=== PATIENT | female | born 1945 | race Caucasian/White ===

== ENCOUNTER 2019-12-10 10:12 | Outpatient (CLI) | payer MEDICARE, SELFPAY | END 2019-12-10 10:13 | disposition home or self-care (01) | LOC: CHSLAB 10:16 | PROVIDERS: PCP Family Medicine; Visit Provider Specialist | DX: C44.329 Squamous cell carcinoma of skin of other parts of face (principal) | CPT/HCPCS: 88305 ==

== ENCOUNTER 2021-04-27 14:37 | Outpatient (CLI) | payer MEDICARE, SELFPAY | END 2021-04-27 14:38 | disposition home or self-care (01) | LOC: CHSOUTPT 14:44 | PROVIDERS: PCP Family Medicine; Visit Provider Specialist | DX: D22.4 Melanocytic nevi of scalp and neck (principal); B07.9 Viral wart, unspecified; L82.1 Other seborrheic keratosis | CPT/HCPCS: 88305 ==

== ENCOUNTER 2021-07-20 13:40 | Outpatient (CLI) | payer MEDICARE, SELFPAY ==
--- NOTE | 2021-07-20 14:26 | ECG_ITS ---
Measurements Intervals [place] Rate: 63 P: 53 NE: 178 QRS: -24 QRSD: 93 T: 8 QT: 401 QTc: 411 Interpretive Statements SINUS RHYTHM BORDERLINE LEFT AXIS DEVIATION [QRS AXIS < -20] MINIMAL VOLTAGE CRITERIA FOR LVH, CONSIDER NORMAL VARIANT [MEETS CRITERIA IN ONE OF: R(aVL), S(V1), R(V5), R(V5/V6)+S(V1)] NONSPECIFIC ST ABNORMALITY ABNORMAL EKG NO PREVIOUS ECG AVAILABLE FOR COMPARISON Electronically Signed On 07-20-2021 15:54:48 RANGE ECOLOGIST by Dontrell Schreiber M.D.
[2021-07-20 14:51] LABS: Basophils Absolute Auto 0.1 K/mm3 (0.0-0.1); Basophils Percent Auto 0.5 % (0.2-1.2); Eosinophils Absolute Auto 0.2 K/mm3 (0-0.3); Eosinophils Percent Auto 1.8 % (0-4.4); Hematocrit 47.9 % (37.0-47.0); Hemoglobin 15.4 g/dL (12.0-15.0); Immature Granulocyte Absolute 0.03 K/mm3 (0.00-0.031); Immature Granulocyte Percent A 0.2 % (0-0.5); Lymphocytes Absolute Auto 4.68 K/mm3 (0.9-3.2); Lymphocytes Percent Auto 36.5 % (18.3-44.2); Mean Corpuscular HGB Conc 32.2 g/dl (32-36); Mean Corpuscular Hemoglobin 29.4 pg (26-34); Mean Corpuscular Volume 91.4 fl (80-100); Mean Platelet Volume 11.7 fl (7.4-10.4); Monocytes Absolute Auto 0.9 K/mm3 (0.1-0.6); Monocytes Percent Auto 7.3 % (2.6-8.5); Neutrophils Absolute Auto 6.9 K/mm3 (1.3-6.7); Neutrophils Percent Auto 53.7 % (45.5-73.1); Platelet Count Result 200 k/mm3 (150-375); Red Blood Count 5.24 M/mm3 (4.2-5.4); White Blood Count 12.8 K/mm3 (4.5-10.0)
[2021-07-20 15:01] LABS: Alanine Aminotransferase 26 U/L (4-35); Albumin Level 4.5 g/dL (3.5-5.1); Alkaline Phosphatase 109 U/L (38-126); Anion Gap 10 mmol/L (8-16); Aspartate Amino Transferase 30 U/L (14-36); Bilirubin,Total 0.4 mg/dL (0.2-1.3); Blood Urea Nitrogen 17 mg/dL (7-17); Calcium 9.3 mg/dL (8.4-10.2); Carbon Dioxide 24 mmol/L (22-30); Chloride 106 mmol/L (98-107); Estimated Glomerular Filt Rate > 60; Glucose 158 mg/dL (65-110); Potassium 3.7 mmol/L (3.4-5.0); Prothrombin Time 13.1 Seconds (11.1-14.7); Sodium 140 mmol/L (137-145)
[2021-07-20 15:02] LABS: Partial Thromboplastin Time 27.8 SECONDS (22.3-36.8)
== END 2021-07-20 13:41 | disposition home or self-care (01) ==
LOC: ANHSURGERY 13:45
PROVIDERS: PCP Family Medicine; Visit Provider Urology
DX: N81.4 Uterovaginal prolapse, unspecified (principal); I10 Essential (primary) hypertension; Z01.818 Encounter for other preprocedural examination; R94.31 Abnormal electrocardiogram [ECG] [EKG]
CPT/HCPCS: 36415; 80053; 85025; 85610; 85730; 86850; 86900; 86901; 87086; 87088; 93005

== ENCOUNTER 2021-08-02 00:31 | Day surgery (SDC) | payer MEDICARE, SELFPAY ==
--- NOTE | 2021-07-20 13:44 | PC.NURSE ---
Report to the Outpatient Waiting Room, entrance under the green pavilion located off [facility], at time _1000_ on date _08/02/21_. OR Time: _1200_. - You and your visitor will be asked a series of questions to screen for COVID 19 for your protection. - A mask is required within the hospital. One visitor will be allowed to accompany the patient into the hospital. Patients visitor will be instructed to remain with patient at all times or leave the building. We will allow the visitor to come back to the postoperative area when patient is ready. Preoperative COVID Testing Requirements: NONE Patients may have clear liquids (water, carbonated beverages, clear teas, apple juice) until 3 hours prior to surgery (0900 AM) with a maximum of 20 ounces. - No food from midnight until time of surgery Take the following medications with a SIP of water the morning of surgery: _ATENOLOL, INHALER IF NEEDED__ Medications to discontinue per physician _PT STATES ALREADY STOPPING MULTI VITAMIN 07/16/21__ Please no make-up, nail ukrainian, hairspray, perfume, deodorant, or body powder the day of surgery. No jewelry (including any body piercings) or valuables the day of surgery, leave them at home. Please take a shower or bath the night before, or the morning of, surgery with an antibacterial soap. Wear comfortable, loose fitting clothing. - Jewelry must be removed prior to entering the operating room. Rings and piercings that are not removed may be cut off. - The hospital will not accept responsibility for valuables. - Please leave all valuables, including medications, at home the day of surgery. If you are going home after surgery, a licensed limousine driver must drive you home. - NO public transportation without another adult. - We recommend that an adult stay with you for 24 hours following discharge. - We also recommend that you do not drive, make important decision, drink alcoholic beverages, or take any drugs that were not prescribed by your health care provider for at least 24 hours after your discharge time. Follow any additional instructions given to you from your surgeon. Instructions given to ___PT and asked if any additional questions and then verbalized understanding. Patient advised to call surgeon office or pre surgery nurse liaisonKRISTINA [phone] if any additional questions.
[2021-07-20 14:01] VITALS: BP 126/76; PULSE 68; RESP 20; TEMP 36.9; O2SAT 94; BMI 30.2
--- NOTE | 2021-07-29 07:47 | PM.IMHP ---
H&P: HPI History of Present Illness Date/Time: 07/29/21 07:47 76-year-old female 1 para 1 admitted for robotic supracervical hysterectomy and bilateral salpingectomy salpingo-oophorectomy secondary to uterine prolapse. She has seen Dr. Maria will undertake robotic supracervical sacral colpopexy. Risks and benefits of the procedure reviewed including minute exclusive of , aspiration pneumonia, bleeding, transfusion, perforation injury to bowel, bladder, ureters, or other internal organs with need for open laparotomy. She received the ACOG handout entitled hysterectomy as well as de Agustín handout. She had all questions answered. She asked to proceed Chief Complaint: uterine prolapse Review of Systems Review of Systems: All systems reviewed & are unremarkable except as noted in HPI and below PMFSH Family History Family History Father Family history of heart disease in male family member before age 55 Mother Family history of heart disease in male family member before age 55 Other Diabetes mellitus Family history of allergic disorder Family history of malignant neoplasm Family history of tuberculosis Hypertension Social History Social History Smoking status: Never smoker Second hand tobacco smoke exposure: No Alcohol intake: never Substance use: never Substance use type: does not use Spiritual care concerns: No Meds Home Medications and Allergies Home Medications Medication Instructions Recorded Confirmed Type albuterol sulfate 2 puff INHALATION PRN PRN 07/20/21 07/20/21 History atenolol 50 mg QAM 07/20/21 07/20/21 History dapagliflozin [Farxiga] 10 mg QAM 07/20/21 07/20/21 History lovastatin 20 mg QAM 07/20/21 07/20/21 History metformin 1,000 mg BID 07/20/21 07/20/21 History qrxzgjrl-zbl-abyn-FA-lutein 1 tablet PO DAILY 07/20/21 07/20/21 History [Centrum Silver Women] telmisartan 20 mg QAM 07/20/21 07/20/21 History Allergies Allergy/AdvReac Type Severity Reaction Status Date / Time No Known Allergies Allergy Verified 07/20/21 13:56 Exam Const: General: no acute distress Eyes: General: appearance normal, both eyes and all related structures Neck: Neck: supple and no JVD Thyroid: thyroid normal Resp: Effort & Inspection: normal respiratory effort Auscultation: clear to auscultation bilaterally Cardio: Rate: regular rate Rhythm: regular rhythm GI: Inspection: non-distended GI Palp: Yes Soft to palpation, No Tenderness to palpation present (GI) and No Guarding due to palpation present (GI) Auscultation: normal bowel sounds : External Female Exam: normal external appearance and Abnormal introitus ( prolapse is present) Speculum Exam - Cervix: normal appearance of the cervix Bimanual exam- vagina & uterus: Uterus displaced Bimanual Exam- Adnexa, other: normal adnexae Skin: General skin exam: no rashes or lesions noted Extrem: General: normal to inspection and no edema Psych: Mental Status: mental status grossly normal Affect: normal affect Assessment and Plan Additional Plan impression: Uterine prolapse Plan: Robotic supracervical hysterectomy and bilateral salpingo-oophorectomy. Candace will proceed with robotic sacral colpopexy
--- NOTE | 2021-07-30 10:00 | PM.IMHP ---
H&P: HPI History of Present Illness Date/Time: 07/30/21 10:00 76-year-old with pelvic organ prolapse and stress incontinence Chief Complaint: Pelvic organ prolapse, stress incontinence Review of Systems Review of Systems: All systems reviewed & are unremarkable except as noted in HPI and below PMFSH Family History Family History Father Family history of heart disease in male family member before age 55 Mother Family history of heart disease in male family member before age 55 Other Diabetes mellitus Family history of allergic disorder Family history of malignant neoplasm Family history of tuberculosis Hypertension Social History Social History Smoking status: Never smoker Second hand tobacco smoke exposure: No Alcohol intake: never Substance use: never Substance use type: does not use Spiritual care concerns: No Meds Home Medications and Allergies Home Medications Medication Instructions Recorded Confirmed Type albuterol sulfate 2 puff INHALATION PRN PRN 07/20/21 07/20/21 History atenolol 50 mg QAM 07/20/21 07/20/21 History dapagliflozin [Farxiga] 10 mg QAM 07/20/21 07/20/21 History lovastatin 20 mg QAM 07/20/21 07/20/21 History metformin 1,000 mg BID 07/20/21 07/20/21 History pqtptuwn-rkw-hyin-FA-lutein 1 tablet PO DAILY 07/20/21 07/20/21 History [Centrum Silver Women] telmisartan 20 mg QAM 07/20/21 07/20/21 History Allergies Allergy/AdvReac Type Severity Reaction Status Date / Time No Known Allergies Allergy Verified 07/20/21 13:56 Exam Narrative: Alert orient x3 Normal breathing Cystocele beyond the introitus. Rectocele to the introitus. Loss of apical support. Urethral mobility noted Assessment and Plan Assessment and plan (1) Vaginal wall prolapse: Code(s): N81.10 - Cystocele, unspecified Status: Acute Assessment and Plan: Robotic sacral colpopexy (2) LORENA (stress urinary incontinence, female): Code(s): N39.3 - Stress incontinence (female) (male) Status: Acute Assessment and Plan: Urethral sling
[2021-08-02] VITALS (12 sets, daily range): BP systolic 95–129; BP diastolic 57–80; PULSE 54–70; RESP 13–20; TEMP 36.1–36.9; O2SAT 89–95; BMI 29.5
--- NOTE | 2021-08-02 07:15 | WPDHPUPDATE1 ---
History and Physical Update Update Date/Time: 08/02/21 07:15 History and Physical has been reviewed, including an updated exam of the patient. There are NO changes in the patient's condition. Risks, benefits, and alternatives have been discussed and questions answered. Patient agrees to proceed with procedure.
--- NOTE | 2021-08-02 07:31 | WPDHPUPDATE1 ---
History and Physical Update Update Date/Time: 08/02/21 07:31 History and Physical has been reviewed, including an updated exam of the patient. There are NO changes in the patient's condition. Risks, benefits, and alternatives have been discussed and questions answered. Patient agrees to proceed with procedure.
[2021-08-02] MEDS: KETOROLAC 15 MG/ML VIAL (*BKC) IV PUSH (09:50)
[2021-08-02] MEDS: ACETAMINOPHEN 500 MG TABLET 1000 MG PO (09:50)
[2021-08-02 09:54] LABS: Glucose Point of Care 136 mg/dl (65-105)
--- NOTE | 2021-08-02 10:06 | WPDANESEPPF ---
Anes - Initial Pre Proc Eval Procedure: Operation Date: 08/02/21 11:00 Proposed Procedures p Robotic Sacrocolpopexy, - Tej Maria MD s Urethral Sling - Tej Maria MD s Robotic Supracervical Hysterectomy with Bilateral Salpingo-oophorectomy - Tony Li MD Date/Time: 08/02/21 10:06 Surgeon: Tej Maria MD Pre Op Diagnosis: incomp uterovaginal prolapse, cystocele, SI Patient Data Age: 76 Gender: F Height: 1.75 m Weight: 90.5 kg Last Vital Signs Temp 36.1 C L 08/02/21 09:58 Pulse 68 08/02/21 09:58 Resp 18 08/02/21 09:58 BP 129/67 08/02/21 09:58 Pulse Ox 91 08/02/21 09:58 Allergies Allergy/AdvReac Type Severity Reaction Status Date / Time No Known Allergies Allergy Verified 08/02/21 09:22 Home Medications Medication Instructions Recorded Confirmed Type albuterol sulfate 2 puff INHALATION PRN PRN 07/20/21 08/02/21 History atenolol 50 mg QAM 07/20/21 08/02/21 History dapagliflozin [Farxiga] 10 mg QAM 07/20/21 08/02/21 History lovastatin 20 mg QAM 07/20/21 08/02/21 History metformin 1,000 mg BID 07/20/21 08/02/21 History mxwquyrc-knb-tbtb-FA-lutein 1 tablet PO DAILY 07/20/21 07/20/21 History [Centrum Silver Women] telmisartan 20 mg QAM 07/20/21 08/02/21 History Laboratory Tests 08/02/21 09:46 POC Capillary Glucose 136 mg/dl H mg/dl (65-105) Patient hx anesthesia problems: none Family hx anesthesia problems: none Results Review: All pre-operative results and documents have been reviewed as part of the pre-operative evaluation. [facility] Past Medical History Medical History (Updated 08/02/21 @ 10:07 by Ben Alvarado DO) Diabetes type 2, controlled History of skin cancer Hyperlipidemia Hypertension CONTRERAS (obstructive sleep apnea) Family History Family History Father Family history of heart disease in male family member before age 55 Mother Family history of heart disease in male family member before age 55 Other Diabetes mellitus Family history of allergic disorder Family history of malignant neoplasm Family history of tuberculosis Hypertension Social History Social History Smoking status: Never smoker Second hand tobacco smoke exposure: No Alcohol intake: never Substance use: never Substance use type: does not use Living arrangements: with family Spiritual care concerns: No Anes - Eval Final PreProcedure Day of Procedure 08/02/21 10:06 Patient weight: overweight Heart: regular rate and rhythm Lungs: clear to auscultation and normal air movement Airway: Mallampati scale class II Neurological: alert and oriented Last oral intake: >/= 8 hours ASA classification: III Emergent: no Anesthetic plan: proceed Anesthesia type and monitoring: general ETT and standard monitoring Results Review: All pre-operative results and documents have been reviewed as part of the pre-operative evaluation. Informed Consent: The patient's anesthetic plan and its attendant risks and benefits were discussed with the patient/family/POA. Questions were solicited and answers provided to the satisfaction of the patient/family/POA.
--- NOTE | 2021-08-02 10:09 | SUR.PREOP ---
DR GALAN NOTIFIED SAO2 OF 91%
[2021-08-02] MEDS: LACTATED RINGERS 1,000 ML 30 ML IV CONT ×2 (10:10→12:57)
[2021-08-02] MEDS: ceFAZolin 2 GM/D5W 50 ML 2 GM/50 ML BAG IVPB (11:01)
[2021-08-02] MEDS: metroNIDAZOLE 500 MG/ISO 100ML 500 MG/100 ML BAG 100 MG IVPB ×2 (11:12→18:25)
[2021-08-02] MEDS: BUPIVACAINE/EPINEPHRINE 0.25% 10 ML VIAL INFILTRATE (11:45)
--- NOTE | 2021-08-02 12:01 | W.PM.PROC2 ---
Procedure Note - Detailed Date of Procedure 08/02/21 Pre-op Diagnosis incomp uterovaginal prolapse, cystocele, SI Post-op Diagnosis Same Procedure Performed Robotic supracervical hysterectomy left salpingo-oophorectomy Surgeon Tony Li MD Anesthesia General Indications a 76-year-old female with uterine prolapse Findings absent right ovary and tube prolapsed uterus Description of Procedure the patient was prepped draped in the normal sterile fashion placed in dorsal lithotomy position. Under excellent general trach anesthesia weighted speculum placed posterior fornix vagina anterior lip of the cervix grasped with single-tooth tenaculum and the Soares's cannula inserted to the cervix. These 2 wrist connected together it to be used for uterine manipulation. A 16 Bulgarian catheter was then placed in the bladder. The gloves were then changed and levy Maria proceeded to dock the robot. Please see his operative report for full details next. The round ligament was grasped on the left clamped burned and cut and anterior bladder flap was formed by sharply dissecting the peritoneum and reflecting the bladder caudally from the uterus and cervix to the opposite round ligament was clamped, burned, cut. The left infundibulopelvic structure was skeletonized clamped, burned, cut and brought to the level of previously cut round ligament. There were a massive amount of adhesions on the right secondary to the previous RSO. Using sharp dissection with cautery this was loosen until the cardinal and broad ligaments on the right could be seen these were visualized. They were clamped, burned, cut and brought down lateral edge of the uterus until the uterine vessels could be seen on the right. These were then clamped, burned, cut. In like fashion the cardinal broad ligaments on the left were clamped, burned, cut and brought down lateral edge of the uterus until the uterine vessels could be seen there. The uterine vessels were then clamped, burned, cut with excellent blanching the uterus. Supracervical incision made and the uterus left ovary and tube were placed in an Endo-Catch. Blood loss was estimated at5cc to this point. Dr. momin proceeded with the sacral colpopexy Estimated Blood Loss 5 Drains No Packing No Pathology Yes Complications No immediate complications Condition Stable Disposition No change
[2021-08-02] MEDS: LIDO 1%/EPINEPHRINE 1:100,000 50 ML VIAL 20 ML INFILTRATE (12:55)
--- NOTE | 2021-08-02 13:56 | W.PM.PROC2 ---
Procedure Note - Detailed Date of Procedure 08/02/21 Pre-op Diagnosis Cystocele, rectocele, stress incontinence Post-op Diagnosis Same Procedure Performed Cystocele repair Rectocele repair Urethral sling Surgeon Tej Maria MD Anesthesia General Indications This is a with pelvic organ prolapse she is here today for surgical correction. She understands risks of bleeding, infection, recurrence, damage surrounding organs, vaginal mesh extrusion, urinary tract mesh erosion, obstructive voiding requiring secondary procedure, hip and leg pain, dyspareunia. She agrees to proceed Findings Significant intra-abdominal adhesions Description of Procedure She was correctly identified. Informed consent obtained. She from the operating room. She was given general anesthesia. She was placed in dorsal thigh position. She was prepped draped in a sterile fashion. Time-out performed. I anesthetized the skin 3 fingerbreadths cephalad to the umbilicus. I incised the skin. I dissected down to the subcutaneous tissues. I grasped the fascia with Terri clamps. The fascia was entered. The midline trocar was placed. Before doing this Vicryl sutures were placed for fascial closure. Under direct vision I placed 2 additional trocars in the right upper quadrant and 2 additional trocars in left upper quadrant. She was placed in steep Trendelenburg. The robot was docked. Her project surveyor proceeded to the console and performed a supracervical hysterectomy. Please see his operative note I then sat down the console. I examined the pelvis. There was significant adhesions in the pelvis. She had undergone a previous right oophorectomy. There was a large staple line in the right pelvis. There was significant adhesions of colon to the posterior vaginal wall. With a Sizer in the vagina attempted to create a plane in the posterior vaginal wall. There is very minimal ability to do this due to significant scarring. I attempted to create a plane on the anterior vaginal wall between the bladder and vagina as well. Again there was significant scarring in this area. I went to the bedside and did an exam. I determined there was reasonable apical support in she had mostly cystocele and rectocele. At this point I opted to not perform a colpopexy as I felt I could not safely perform it and cover the mesh which would lead to risks of future bowel obstruction. This point I decided to convert to a vaginal procedure. The uterus was removed. Additional fascial sutures were placed. Fascia was closed. The skin was closed with Monocryl and surgical glue. I then placed a Frankford retractor. I grasped the cystocele. I infiltrated subcutaneous tissues. I made a midline vaginal incision. I dissected out laterally taking great care not to injure surrounding organs. I then performed a standard cystocele plication repair with 0 Vicryl suture. I trimmed excess vaginal mucosa. I closed the mucosa with a running 2 Vicryl suture. There was excellent support to the cystocele. I then grasped the rectocele with Allis clamps. I infiltrated subcutaneous tissues. I made a midline vaginal incision on the posterior wall. I dissected the mucosa of midline fascial structures laterally back to the apex. I then performed a plication rectocele repair with 0 Vicryl sutures. I trimmed minimal excess vaginal mucosa. I closed the fascia closed with a running 2-0 Vicryl suture. There was excellent support of the rectocele without undue narrowing of the vagina I then marked out my thigh incisions. I anesthetized the skin and made those incisions. I anesthetized the anterior vaginal wall over the mid urethra. I made a 1 cm incision. I dissected out laterally taking great care not to injure the urethra vaginal wall. I passed the helical trocars 1st on the left. Then on the right. From the thigh incision towards the vaginal incision. Sling was connected to the trocars and brought out through th
[2021-08-02 14:19] LABS: Glucose Point of Care 182 mg/dl (65-105)
--- NOTE | 2021-08-02 14:38 | SUR.PHASEI ---
called dr conway and informed of o2 sat 90-92% with o2 nc 3l,orders for nebulizer albuterol .
[2021-08-02] MEDS: ALBUTEROL SULFATE NEB 2.5 MG/3 ML INH INHALATION (14:46)
--- NOTE | 2021-08-02 15:25 | PC.NURSE ---
This patient, Mary Bahena, was received from PACU on 08/02/21 at 1525. Patient/family oriented to unit policies and routines
[2021-08-02] MEDS: LACTATED RINGERS 1,000 ML 125 ML (16:30)
[2021-08-02] MEDS: metFORMIN HCL 500 MG TABLET 1000 MG PO (18:21)
[2021-08-02] MEDS: DICLOFENAC SODIUM 0.1% OPHTH SOLN 2.5 ML BOTTLE 1 DROP EACH EYE (20:54)
[2021-08-02] MEDS: PROPARACAINE HCL 0.5% 15 ML OPHTH SOLN 1 DROP EACH EYE (20:55)
[2021-08-02] MEDS: ACETAMINOPHEN 325 MG TABLET 650 MG PO (23:35)
--- NOTE | 2021-08-03 01:35 | PC.NURSE ---
All charting done on this patient from 1800 on 08/02 until this point was charted under Naty Salazar but was actually documented by China Millard
[2021-08-03] MEDS: metroNIDAZOLE 500 MG/ISO 100ML 500 MG/100 ML BAG 100 MG IVPB ×2 (02:09→10:00)
[2021-08-03 03:30] VITALS: BP 100/54; PULSE 57; RESP 16; TEMP 36.9; O2SAT 90
--- NOTE | 2021-08-03 07:42 | PM.GYNPNOP ---
SERVICE CAR OPERATOR - A/P Postoperative Procedures: Procedures Operation Date: 08/02/21 11:00 Actual Procedure Side Surgeon p Attempted Robotic Sacrocolpopexy, Anterior and Posterior Repair Tej Maria MD s Urethral Sling Tej Maria MD s Robotic Supracervical Hysterectomy with Bilateral Salpingo-oophorectomy Tony Li MD Time Spent With Patient Time: Total time spent is greater than 50% in coordination of care (as documented) at patient's floor/unit and/or counseling patient: Time with patient: less than 15 minutes SERVICE CAR OPERATOR- PN:Subj Post-Op Subjective Date/time seen: 08/03/21 07:42 Subjective: patient has no complaints and patient desires discharge Review of Systems Review of Systems: All systems reviewed & are unremarkable except as noted in HPI and below Exam Const: General: no acute distress Eyes: General: appearance normal, both eyes and all related structures Neck: Neck: supple and no JVD Thyroid: thyroid normal Resp: Effort & Inspection: normal respiratory effort Auscultation: clear to auscultation bilaterally Cardio: Rate: regular rate Rhythm: regular rhythm GI: Inspection: non-distended GI Palp: Yes Soft to palpation, No Tenderness to palpation present (GI) and No Guarding due to palpation present (GI) Auscultation: normal bowel sounds : General: Yes bladder normal to palpation External Female Exam: normal external appearance Speculum Exam - Vagina: normal vaginal discharge and No vaginal bleeding Speculum Exam - Cervix: nontender Bimanual exam- vagina & uterus: bladder normal to palpation and No Cervical tenderness present OB/external & speculum: No vaginal bleeding Skin: General skin exam: no rashes or lesions noted Extrem: General: normal to inspection and no edema Psych: Mental Status: mental status grossly normal Affect: normal affect SERVICE CAR OPERATOR - PN: Obj Data Vital Signs Vital Signs: Vital Signs - 24 hr 08/02/21 09:58 08/02/21 13:57 08/02/21 14:10 Temperature 97.0 F L 97.7 F Pulse Rate 68 70 63 Respiratory Rate 18 14 20 Blood Pressure 129/67 95/60 L 125/71 Pulse Oximetry 91 92 95 08/02/21 14:25 08/02/21 14:40 08/02/21 14:44 Temperature Pulse Rate 61 58 L 60 Respiratory Rate 14 13 14 Blood Pressure 118/80 118/69 Pulse Oximetry 92 91 08/02/21 14:50 08/02/21 14:57 08/02/21 15:13 Temperature Pulse Rate 59 L 54 L 60 Respiratory Rate 15 13 15 Blood Pressure 125/63 125/74 Pulse Oximetry 93 92 08/02/21 16:00 08/02/21 19:30 08/02/21 23:30 Temperature 97.9 F 98.4 F 98.2 F Pulse Rate 60 67 65 Respiratory Rate 15 16 16 Blood Pressure 127/78 118/68 104/57 L Pulse Oximetry 92 93 89 L 08/03/21 03:30 Temperature 98.4 F Pulse Rate 57 L Respiratory Rate 16 Blood Pressure 100/54 L Pulse Oximetry 90 Intake/Output Intake/Output: Intake & Output 07/31/21 08/01/21 08/02/21 08/03/21 22:59 23:59 23:59 23:59 Intake Total 700 1000 Output Total 160 1025 Balance 540 -25 Meds/Results Medications: Active Medications Generic Name Dose Route Start Last Admin Trade Name Freq PRN Reason Stop Dose Admin Acetaminophen 650 mg 08/02/21 15:25 08/02/21 23:35 Acetaminophen 325 Mg Tablet PO 650 mg Q4H PRN Administration Mild Pain (1-3) or Fever Hydrocodone Bitart/Acetaminophen 1 tab 08/02/21 15:25 Hydrocodone/Acetaminophen (*Crx) 5-325 Mg Tablet PO Q4H PRN Pain Rated 4-5 Albuterol 2 puff 08/02/21 15:25 Albuterol Sulfate (*Sp) Aerosol 1 Puff INHALATION PRN PRN Wheezing Artificial Tears 1 drop 08/02/21 19:52 Artificial Tears Ophth Soln 15 Ml Bottle EACH EYE Q2H PRN Dry Eye(s) Atenolol 50 mg 08/03/21 09:00 Atenolol 50 Mg Tablet BY MOUTH QAM DANE Cephalexin HCl 500 mg 08/03/21 13:00 Cephalexin 500 Mg Capsule PO QID DANE Dextrose 12.5 gm 08/02/21 11:49 Dextrose 50% 25 Gm/50 Ml Syringe IV PUSH PRN PRN Hypoglycemia Protocol Diclofenac S
--- NOTE | 2021-08-03 07:43 | P.DS_ITS ---
DS: Admitting Diagnosis Discharge Date 08/03/2021 Admitting Diagnosis Uterine prolapse DS: Summary Hospital Course Hospital Course: Patient underwent supracervical hysterectomy bilateral filemon pingo-oophorectomy sacral colpopexy. Hospital course was unremarkable. She remained afebrile. She was up, ambulating, voiding without difficulty, generally without complaints. Time Spent with Patient Time attestation: Total time spent providing and/or coordinating discharge services: DS: Data Data Completed and Pending Pending studies at discharge: Pending at discharge 08/02/21 12:54 Surgical [PTH] Routine Labs on day of discharge: Labs from last 24 hours 08/02/21 08/02/21 14:16 09:46 POC Capillary Glucose 182 H 136 H Discharge Plan Discharge Patient Disposition: Home, Self-Care Discharge Instructions: No lifting >20lb, exercise for 6 weeks No tub bath or pool for 2 weeks No intercourse for 6 weeks Stand Alone Forms: General Discharge Instructions Follow-up/Referrals: Tej Maria MD [Physician] - (6 weeks as scheduled) Discharge Medications: New hydrocodone-acetaminophen 5-325 mg tablet 1 tablet PO Q6H PRN (Reason: pain) Qty: 20 RF: 0 docusate sodium [Colace] 100 mg capsule 100 mg PO BID Qty: 60 RF: 0 Continued metformin 500 mg tablet 1,000 mg BID RF: 0 telmisartan 20 mg tablet 20 mg QAM RF: 0 lovastatin 20 mg tablet 20 mg QAM RF: 0 albuterol sulfate 90 mcg/actuation HFA aerosol inhaler 2 puff INHALATION PRN PRN (Reason: Wheezing) RF: 0 atenolol 50 mg tablet 50 mg QAM RF: 0 Centrum Silver Women 8 mg iron-400 mcg-300 mcg Tablet 1 tablet PO DAILY RF: 0 Farxiga 10 mg tablet 10 mg QAM RF: 0
[2021-08-03 08:00] VITALS: BP 99/59; PULSE 60; RESP 16; RESP 18; TEMP 36.3; O2SAT 94
--- NOTE | 2021-08-03 08:00 | PC.NURSE ---
Vaginal packing pulled. Pt. tolerated well.
[2021-08-03] MEDS: DOCUSATE SODIUM 100 MG CAPSULE PO (08:15)
[2021-08-03] MEDS: ACETAMINOPHEN 325 MG TABLET 650 MG PO (08:16)
[2021-08-03] MEDS: DICLOFENAC SODIUM 0.1% OPHTH SOLN 2.5 ML BOTTLE 1 DROP EACH EYE (08:19)
[2021-08-03] MEDS: ARTIFICIAL TEARS OPHTH SOLN 15 ML BOTTLE 1 DROP EACH EYE (08:20)
[2021-08-03] MEDS: TELMISARTAN 20 MG TABLET PO (08:22)
[2021-08-03] MEDS: THERAPEUTIC MULTIVITAMINS/MINERALS TAB (*BKC) 1 TABLET PO (08:23)
[2021-08-03] MEDS: EMPAGLIFLOZIN 25 MG TABLET PO (08:23)
[2021-08-03] MEDS: metFORMIN HCL 500 MG TABLET 1000 MG PO (08:23)
[2021-08-03] MEDS: LOVASTATIN 20 MG TABLET PO (08:24)
[2021-08-03] MEDS: ENOXAPARIN 30 MG/0.3 ML SYRINGE SUB-Q (08:24)
[2021-08-03 08:25] VITALS: PULSE 70
[2021-08-03] MEDS: atenoloL 50 MG TABLET BY MOUTH (08:25)
--- NOTE | 2021-08-03 10:51 | WPDANESPN ---
Anes - Prog Note Post-Op Date/Time: 08/03/21 10:51 Cardiovascular status: normal Respiratory status: normal Airway patency: baseline Mental status: baseline Post-Op hydration status: normal Vital Signs: Last Vital Signs Temp 36.3 C L 08/03/21 08:00 Pulse 70 08/03/21 08:25 Resp 18 08/03/21 08:00 BP 99/59 L 08/03/21 08:00 Pulse Ox 94 08/03/21 08:00 Pain Score (VAS): 2/10 I/O: Intake & Output 08/02/21 08/03/21 08/03/21 23:59 07:59 15:59 Intake Total 350 1000 1400 Output Total 80 1025 275 Balance 270 -25 1125 08/02/21 14:16 POC Capillary Glucose 182 H Post-procedural complaints: none Patient Feedback: Patient satisfied with anesthetic care.
--- NOTE | 2021-08-03 11:41 | PC.NURSE ---
Discharge instructions given including when to return for MD appt.s with Dr. Rosaline Coelho and Dr. Maria. Instructed pt. to not lift anything over 10 lbs. and nothing in the vaginal until released by MD. Pt. verbalized understanding. No questions or concerns voiced.
== END 2021-08-03 13:28 | disposition home or self-care (01) ==
LOC: ANHSURGERY 11:52 → ANHOB2 15:33
PROVIDERS: Obstetrics & Gynecology; PCP Family Medicine; Visit Provider Urology
PROC: (CPT 57425; principal; 2021-08-02 11:00)
PROC: (CPT 57260; 2021-08-02 11:00)
PROC: 0UT94ZZ Resection of Uterus, Percutaneous Endoscopic Approach (ICD-10-PCS; CPT 57425; 2021-08-02 11:00)
DX: N81.4 Uterovaginal prolapse, unspecified (principal); N39.3 Stress incontinence (female) (male); N73.6 Female pelvic peritoneal adhesions (postinfective); N80.0 Endometriosis of uterus; Z79.51 Long term (current) use of inhaled steroids; Z79.84 Long term (current) use of oral hypoglycemic drugs
CPT/HCPCS: 57260; 57288; 58542; S2900; 36415; 80053; 82948; 85025; 85610; 85730; 86850; 86900; 86901; 87086; 87088; 88307; 93005; 94640; 99199; A9270; C1758; C1769; C1771; C9290; J0690; J1100; J1170; J1650; J1885; J2405; J2704; J3010; J7030; J7120

== ENCOUNTER 2021-11-26 07:43 | Outpatient (CLI) | payer MEDICARE, SELFPAY ==
--- NOTE | ~2021-11-26 | MM_ITS ---
EXAMINATION: MM screening dev BI w rick HISTORY: Screening TECHNIQUE: Craniocaudal and mediolateral oblique 3-D tomosynthesis images were obtained and synthetic 2-D images were generated. CAD analysis was submitted and interpreted. COMPARISON: No prior mammogram is available for comparison at this institution. BREAST PARENCHYMAL COMPOSITION: The breasts are almost entirely fatty. FINDINGS: There is no evidence of suspicious mass, calcification, or architectural distortion to sugg est malignancy in either breast. There has been no suspicious interval change. IMPRESSION: 1. No mammographic evidence of malignancy. 2. Recommend routine screening mammography in one year. BI-RADS Category 1: Negative Reviewed, dictated and finalized at location L.
== END 2021-11-26 07:44 | disposition home or self-care (01) ==
LOC: ANHIMG 07:46
PROVIDERS: PCP Family Medicine; Visit Provider Obstetrics & Gynecology
DX: Z12.31 Encounter for screening mammogram for malignant neoplasm of breast (principal)
CPT/HCPCS: 77063; 77067

== ENCOUNTER 2023-04-20 09:03 | Outpatient (CLI) | payer MEDICARE, SELFPAY ==
--- NOTE | ~2023-04-20 | MM_ITS ---
EXAMINATION: MM screening dev BI w rick HISTORY: Screening mammogram TECHNIQUE: Craniocaudal and mediolateral oblique 3-D tomosynthesis images were obtained and synthetic 2-D images were generated. CAD analysis was submitted and interpreted. COMPARISON: 11/26/2021 bilateral screening mammogram BREAST PARENCHYMAL COMPOSITION: There are scattered areas of fibroglandular density. FINDINGS: There is no evidence of suspicious mass, calcification, or architectural distortion to sugg est malignancy in either breast. There has been no suspicious interval change. IMPRESSION: 1. No mammographic evidence of malignancy. 2. Recommend routine screening mammography in one year. BI-RADS Category 1: Negative...... Reviewed, dictated and finalized at location A. [employer]
== END 2023-04-20 09:04 | disposition home or self-care (01) ==
LOC: ANHIMG 09:07
PROVIDERS: PCP Family Medicine; Visit Provider Obstetrics & Gynecology
DX: Z12.31 Encounter for screening mammogram for malignant neoplasm of breast (principal)
CPT/HCPCS: 77063; 77067

== ENCOUNTER 2024-02-27 20:36 | Emergency (ER) | payer MEDICARE, OTHER, SELFPAY ==
[2024-02-27 20:36] VITALS: BP 143/86; PULSE 79; RESP 18; TEMP 36.6; O2SAT 91
--- NOTE | 2024-02-27 20:50 | ED.HEATRA ---
HPI - Head Injury General Chief complaint: Head Injury Stated complaint: head injury, head laceration, fall Source: patient Mode of arrival: ambulatory Limitations: no limitations History of Present Illness HPI Narrative: 78 year old female presents to the Emergency Department complaining of ground level fall. Patient states she was walking at her [employer] restaurant and slipped and fell in the gravel, striking the back of her head. Has laceration to occipital scalp. Denies loss of consciousness. Denies taking blood thinners. Denies any other injury. States last tetanus less than 5 years. MD Complaint: head injury Onset (ago): minute(s) Mechanism of Injury: fall Place: other (local restaurant) Loss of Consciousness: no Location of injury: occipital Other Injuries: none Associated symptoms: denies other symptoms Related Data Home Medications Medication Instructions Recorded Confirmed albuterol sulfate 90 mcg/actuation 2 puff inhalation PRN PRN Wheezing 07/20/21 02/27/24 aerosol inhaler atenolol 50 mg tablet 50 mg QAM 07/20/21 02/27/24 lovastatin 20 mg tablet 20 mg QAM 07/20/21 02/27/24 metformin 500 mg tablet 1,000 mg BID 07/20/21 02/27/24 [id number] 8 mg-folic 400 1 tablet PO DAILY 07/20/21 02/27/24 mcg-K 50 mcg-lutein 300 mcg tablet (Centrum Silver Women) Allergies Allergy/AdvReac Type Severity Reaction Status Date / Time adhesive tape Allergy Unknown Rash Verified 02/27/24 20:51 bee venom protein (honey bee) Allergy Unknown Rash Verified 02/27/24 20:51 [bees] Review of Systems Review of Systems: All systems reviewed & are unremarkable except as noted in HPI and below Constitutional: Constitutional: Reports as per HPI and Denies weakness Eyes: Eyes: Reports as per HPI and Denies change in vision ENT: Reports system reviewed and no additional complaints, except as documented Cardiovascular: Cardiovascular: Reports as per HPI and Denies chest pain Respiratory: Respiratory: Reports as per HPI and Denies dyspnea Gastrointestinal: Gastrointestinal: Reports as per HPI, Denies abdominal pain, Denies nausea and Denies vomiting Genitourinary: Genitourinary: Reports no additional female genitourinary complaints Musculoskeletal: Musculoskeletal: Reports no additional musculoskeletal complaints, Denies back pain, Denies myalgias and Denies arthralgias Integumentary/Breasts: Skin/Breast: Reports system reviewed and no additional complaints, except as docu Neurologic: Reports system reviewed and no additional complaints, except as documented, Denies confusion, Denies vertigo, Denies dizziness, Denies syncope, Denies headache(s), Denies focal weakness, Denies numbness and Denies weakness PMFSH Past Medical History Medical History Diabetes type 2, controlled History of skin cancer Hyperlipidemia Hypertension CONTRERAS (obstructive sleep apnea) Family History Family History Father Family history of heart disease in male family member before age 55 Mother Family history of heart disease in male family member before age 55 Other Diabetes mellitus Family history of allergic disorder Family history of malignant neoplasm Family history of tuberculosis Hypertension Social History Social History Smoking status: Never smoker Second hand tobacco smoke exposure: No Alcohol intake: never Substance use: never Substance use type: does not use Living arrangements: with family Spiritual care concerns: No Exam Const: General: healthy appearing, no acute distress and alert Nutritional Appearance: well nourished Orientation/consciousness: patient oriented x3 Limitations: no limitations HENMT: Head: laceration (superficial puncture/abrasion upper occipital scalp) Ears: external ears normal Face/Nose/Sinus: Normal exte
[2024-02-27] MEDS: NEOMYCIN/POLYMYXIN/BACITRACIN OINTMENT PACKET 1 PACKET TOPICAL (21:20)
== END 2024-02-27 21:20 | disposition home or self-care (01) ==
LOC: CHSED 21:21
PROVIDERS: Emergency Provider Emergency Medicine; PCP Family Medicine
DX: S01.03XA Puncture wound without foreign body of scalp, initial encounter (principal); E11.9 Type 2 diabetes mellitus without complications; E78.5 Hyperlipidemia, unspecified; I10 Essential (primary) hypertension; Z79.899 Other long term (current) drug therapy; Z79.84 Long term (current) use of oral hypoglycemic drugs; W01.0XXA Fall on same level from slipping, tripping and stumbling without subsequent striking against object, initial encounter; Y92.511 Restaurant or cafe as the place of occurrence of the external cause
CPT/HCPCS: 99283